=== PATIENT | female | born 1950 | race Two or more races ===

== ENCOUNTER 2019-04-03 08:36 | Outpatient (CLI) | payer OTHER | END 2019-04-03 08:45 | disposition home or self-care (01) | LOC: MAMO-SONO 08:36 | DX: N64.4 Mastodynia (principal); N60.11 Diffuse cystic mastopathy of right breast; N60.12 Diffuse cystic mastopathy of left breast ==

== ENCOUNTER 2019-04-03 10:21 | Outpatient (CLI) | payer OTHER | END 2019-04-03 10:26 | disposition home or self-care (01) | LOC: NUCLEAR 10:21 | DX: M81.0 Age-related osteoporosis without current pathological fracture (principal) ==

== ENCOUNTER → 2020-04-06 | Outpatient (CLI) | payer OTHER | END | disposition home or self-care (01) | LOC: MAMO-SONO 07:54 | PROVIDERS: ATTEND Obstetrics & Gynecology | DX: N64.4 Mastodynia (principal); Z12.31 Encounter for screening mammogram for malignant neoplasm of breast ==

== ENCOUNTER 2021-04-07 07:29 | Outpatient (CLI) | payer OTHER | END 2021-04-07 07:41 | disposition home or self-care (01) | LOC: MAMO-SONO 07:29 → NUCLEAR 13:15 | PROVIDERS: ATTEND Obstetrics & Gynecology | DX: N64.4 Mastodynia (principal); Z12.31 Encounter for screening mammogram for malignant neoplasm of breast; M81.0 Age-related osteoporosis without current pathological fracture ==

== ENCOUNTER 2021-04-07 09:04 | Outpatient (CLI) | payer OTHER | END 2021-04-07 09:06 | disposition home or self-care (01) | LOC: NUCLEAR 09:04 | PROVIDERS: ATTEND Obstetrics & Gynecology | DX: M81.0 Age-related osteoporosis without current pathological fracture (principal) ==

== ENCOUNTER 2022-04-11 08:37 | Outpatient (CLI) | payer OTHER | END 2022-04-11 08:38 | disposition home or self-care (01) | LOC: MAMO-SONO 08:37 | PROVIDERS: ATTEND Obstetrics & Gynecology | DX: Z12.31 Encounter for screening mammogram for malignant neoplasm of breast (principal); N64.4 Mastodynia ==

== ENCOUNTER 2023-04-25 07:08 | Outpatient (CLI) | payer OTHER | END 2023-04-25 07:13 | disposition home or self-care (01) | LOC: MRI 07:08 | DX: M17.11 Unilateral primary osteoarthritis, right knee (principal); S83.242A Other tear of medial meniscus, current injury, left knee, initial encounter | CPT/HCPCS: 73721 ==